=== PATIENT | male | born 1975 | race Caucasian/White ===

== ENCOUNTER 2017-02-11 14:47 | Emergency (ER) | payer BC ==
[2017-02-11 15:04] VITALS: BP 115/80
--- NOTE | 2017-02-11 15:44 | UC ---
Skin Complaint HPI - History of Current Complaint Chief Complaint: UCSkin Time Seen by Provider: 02/11/17 15:34 Stated Complaint: SKIN COMPLAINT ON BACK Hx Obtained From: Patient Onset/Duration: Gradual Onset, Lasting Weeks - 2, Worse Since - onset, increased pain. ? smaller in size. Skin Exposure Onset/Duration: Weeks Ago - 2 Timing: Constant Onset Severity: Mild Current Severity: Moderate Location: Discrete - Right hip / belt line Character: Swelling, Redness, Raised, Painful Aggravating: Clothing, Touch Alleviating: Nothing Associated Signs & Symptoms: Positive: Nausea, Tenderness. Negative: Vomiting, Diaphoresis, Fever, Drainage - Allergy/Home Medications Allergies/Adverse Reactions: Allergies Allergy/AdvReac Type Severity Reaction Status Date / Time No Known Allergies Allergy Verified 02/11/17 15:04 Home Medications: Home Medications Acetaminophen [Acetaminophen Extra Stren] 1,000 mg PO Q6H PRN 02/11/17 [History Confirmed 02/11/17] Omeprazole CAP* [Prilosec CAP* 20 MG] 20 mg PO BEDTIME 02/11/17 [History Confirmed 02/11/17] Pramipexole TAB* [Mirapex TAB*] 0.125 mg PO BEDTIME 02/11/17 [History Confirmed 02/11/17] Review of Systems Skin: Rash All Other Systems Reviewed And Are Negative: Yes PMH/Surg Hx/FS Hx/Imm Hx Previously Healthy: Yes - Surgical History Surgical History: None Surgery Procedure, Year, and Place: NASAL FX, 2008, [place] X2. CERVICAL SPINE SURGERY 2014,[facility]. NASAL SX 2017 - Family History Known Family History: Positive: Diabetes - Social History Occupation: Employed Full-time Lives: With Family Alcohol Use: Occasionally Alcohol Amount: 10 BEERS 2X A MONTH Substance Use Type: None Smoking Status (MU): Current Every Day Smoker Type: Cigarettes Amount Used/How Often: 1/2 PACK A DAY Length of Time of Smoking/Using Tobacco: 23 YRS Have You Smoked in the Last Year: Yes - Immunization History Most Recent Influenza Vaccination: UNKNOWN Most Recent Tetanus Shot: 3-5 YEARS Most Recent Pneumonia Vaccination: NONE Physical Exam Triage Information Reviewed: Yes Appearance: Well-Appearing, Well-Nourished, Pain Distress - mild Vital Signs: Initial Vital Signs Temp 97.5 F 02/11/17 14:54 Pulse 75 08/12/17 14:54 Resp 18 02/11/17 14:54 BP 115/80 02/11/17 14:54 Pulse Ox 98 02/11/17 14:54 Vital Signs Reviewed: Yes Eyes: Positive: Conjunctiva Clear Neck exam: Normal Respiratory Exam: Normal Cardiovascular Exam: Normal Musculoskeletal Exam: Normal Musculoskeletal: Positive: No Edema Neurological Exam: Normal Psychological Exam: Normal Skin: Positive: Other - 3x3cm abscess with fluctuent center in the right lower back. Very tender, red, and warm. - Additional Comments I+D: right lower back. Consent/ Time out done. Local 4cc 0.25% marcaine. Incision with 11 blade. Abscess pus and sebum expressed. Dry gauze bandage. Course/Dx - Differential Diagnoses - Skin Complaint Differential Diagnoses: Abscess, Cellulitis, Lymphadenitis - Diagnoses Provider Diagnoses: Abscess right lower back. S/P I+D Discharge - Discharge Plan Condition: Stable Disposition: HOME Prescriptions: Sulfamethox/Trimethoprim DS* [Bactrim DS 800/160 TAB*] 1 tab PO BID #14 tab Patient Education Materials: Abscess (ED), Incision and Drainage (ED), Sulfamethoxazole/Trimethoprim (By mouth)
[2017-02-11] MEDS ORDERED: Bupivacaine 0.25% SDV* 30 ML INJ ONE (15:49)
== END 2017-02-11 16:26 | disposition home or self-care (01) ==
LOC: UCCORT 14:47
DX: L02.212 Cutaneous abscess of back [any part, except buttock and flank] (principal); R11.0 Nausea; F17.210 Nicotine dependence, cigarettes, uncomplicated
CPT/HCPCS: 10060; 87070; 87205; 99212; G0463

== ENCOUNTER 2019-09-11 13:54 | Emergency (ER) | payer BC, OTHER | END 2019-09-11 14:59 | disposition left against medical advice (07) | LOC: UCCORT 13:54 | DX: Z53.21 Procedure and treatment not carried out due to patient leaving prior to being seen by health care provider (principal) ==

== ENCOUNTER 2019-10-01 12:16 | Emergency (ER) | payer OTHER ==
--- OUTSIDE RECORDS SUMMARY | 2019-10-01 12:24 | XMS REPORT | Continuity of Care Document ---
:1975 External Reference #:[id number] Author Name BEULAH Kelley (transmitted by agent of provider Christin Delgado) Address [address] [place] [address] Care Team Providers Name Role Phone Heri Plummer MD - Care Team Information Neon Sign Maker [phone] Endocrinology, Diabetes & Metabolism Remington Chinchilla MD - Family Care Team Information Neon Sign Maker Medicine Problems Active Problems Provider Date Cervical spondylosis without myelopathy Jordy Mcdonnell M.D. Onset: 07/02/2013 Cervical spondylosis with myelopathy Jordy Mcdonnell M.D. Onset: 09/04/2013 Neck pain Jordy Mcdonnell M.D. Onset: 01/27/2016 Restless legs Onset: 05/18/2011 Adjustment disorder with depressed mood Hamilton Monroe M.D. Onset: 2018 Note: F43.21 Social History Type Date Description Comments Sex Unknown Tobacco Use Start: Unknown Patient is a current cigarette smoker, smokes every day Tobacco Use Start: Unknown currently smokes 1/2 Pack Daily ETOH Use Occasionally consumes alcohol Recreational Drug Use Denies Drug Use Tobacco Use Reviewed: 12/17/15 Patient is a current smoker, smokes 1/4 ppd every day Smoking Status Reviewed: 03/07/19 Patient is a current smoker, smokes 1/4 ppd every day Allergies, Adverse Reactions, Alerts Description No Known Drug Allergies Medications Active Medications SIG Qnty Indications Ordering Provider Date Mirapex take 2 tablets 60tabs G25.81 Remington 07/04/2016 0.125mg Tablets 2-3 hours before MD Amor sleep Omeprazole 1 by mouth every 30caps Remington 20mg day as needed MD Amor Capsules DR Immunizations CPT Code Status Date Vaccine Lot # [id number] Given 08/25/2010 Tdap - Tetanus/Diptheria/Acellular Pertussis [id number] Given 08/25/2010 Influenza Virus 3Yrs & Over Vital Signs Date Vital Result Comment 09/11/2019 3:47pm Heart Rate 80 /min BP Systolic Sitting 118 mmHg BP Diastolic Sitting 80 mmHg Respiratory Rate 16 /min Body Temperature 98.3 F O2 % BldC Oximetry 98 % 80room air 03/06/2019 11:23am Weight 210.00 lb BP Systolic 134 mmHg BP Diastolic 94 mmHg Results Description No Information Available Procedures Description No Information Available Medical Devices Description No Information Available Encounters Type Date Location Provider Dx Diagnosis Office Visit 09/11/2019 [facility] BEULAH Kelley B34.9 Viral infection, 3:41p Walk-in at [facility] unspecified Drugs Assessments Date Code Description Provider 09/11/2019 B34.9 Influenza-like illness BEULAH Kelley Plan of Treatment Future Appointment(s):10/10/2019 1:00 pm - BEULAH Zarate at [facility]05/2020 - Nuvia Mccann PAB34.9 Influenza-like illnessComments:FOLLOW UP WITH PRIMARY CARE IN 7-10 DAYS OR SOONER IF WORSE. Functional Status Description No Information Available Mental Status Description No Information Available Referrals Description No Information Available
[2019-10-01 13:35] VITALS: BP 141/92
--- NOTE | 2019-10-02 11:29 | UC ---
FLU HPI - HPI Summary HPI Summary: Due to concern for my evaluation patient was through the conferencing Pt presents to urgent care with flulike symptoms. Patient is a 44-year-old male who states approximately 3 weeks ago he was influenza at the [facility] clinic. Patient states after 4 days he started feeling better. Patient returned. Patient states 4 days ago she started to feel ill again. Patient states his Body aches. Patient has sore throat. Patient has a cough is nonproductive. Patient states he feels very fatigued. Tactile temperatures. Patient's been taking Tylenol seems to help. Patient states today he feels better but still very tired with some body aches. No nausea vomiting. Decreased appetite. No ear pain. Patient lives alone but has contact with his girlfriend and her 2 children. 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 Patient without any known contacts COVID. No travel. Patient is not immunocompromised. Patient's medications is under an EMR Nisha was reviewed this visit. - History of Current Complaint Chief Complaint: UCGeneralIllness Stated Complaint: COUGH,CONGESTION,FATIGUE Time Seen by Provider: 10/01/19 12:46 Hx Obtained From: Patient Pain Intensity: 0 Pain Scale Used: 0-10 Numeric - Allergy/Home Medications Allergies/Adverse Reactions: Allergies Allergy/AdvReac Type Severity Reaction Status Date / Time No Known Allergies Allergy Verified 10/01/19 12:27 Home Medications: Home Medications Omeprazole CAP (NF) [Prilosec CAP* 20 MG] 20 mg PO BEDTIME 02/11/17 [History Confirmed 10/01/19] Pramipexole TAB* [Mirapex TAB*] 0.125 mg PO BEDTIME 02/11/17 [History Confirmed 10/01/19] PMH/Surg Hx/FS Hx/Imm Hx Previously Healthy: Yes - Surgical History Surgical History: None Surgery Procedure, Year, and Place: NASAL FX, 2008, [place] X2. [place] [place]AL [place]X 2017 - Family History Known Family History: Positive: Diabetes - Social History Occupation: Employed Full-time Lives: Alone Alcohol Use: Occasionally Alcohol Amount: 10 BEERS 2X A MONTH Substance Use Type: None Smoking Status (MU): Current Every Day Smoker Type: Cigarettes Amount Used/How Often: 1/2 PACK A DAY Length of Time of Smoking/Using Tobacco: 23 YRS Have You Smoked in the Last Year: Yes - Immunization History Most Recent Influenza Vaccination: UNKNOWN Most Recent Tetanus Shot: 3-5 YEARS Most Recent Pneumonia Vaccination: NONE Review of Systems All Other Systems Reviewed And Are Negative: Yes Constitutional: Positive: Fever - tactile, Fatigue Skin: Positive: Negative Eyes: Positive: Negative ENT: Positive: Negative Respiratory: Positive: Cough - non productive. Negative: Shortness Of Breath Cardiovascular: Negative: Chest Pain Gastrointestinal: Positive: Negative Genitourinary: Positive: Negative Motor: Positive: Negative Neurovascular: Positive: Negative Musculoskeletal: Positive: Negative Physical Exam - Summary Physical Exam Summary: Due to concern for pulmonary physical exam was done by the video conference. Limitations related to this discussed - pt well appearing Patient comfort and in agreement Vital Signs Reviewed: Yes A+Ox3, intermittent cough - speaking full easy sentences, appropriate in no distress Eyes: Conjunctiva Clear ENT: Hearing grossly normal, mmmoist neck: supple Respiratory: Positive: No respiratory distress, No accessory muscle use, mild cough, no audible wheeze Cardiovascular: skin color reflect adequate perfusion Musculoskeletal Exam: NEWBY x 4 without difficulty, ambulatory Neurological: Positive: Alert, ambulatory without difficulty Psychological: Positive: Normal Response To proivder Skin: Positive: no rash, no ecchymosis Triage Information Reviewed: Yes Vital Signs: Initial Vital Signs Temp 98.1 F 10/01/19 13:34 Pulse 88 10/01/19 13:34 Resp 20 10/01/19 13:34 BP 141/92 10/01/19 13:34 Pulse Ox 95 10/01/19 13:34 Flu Course/Dx - Course Course Of Treatment: Patient presents to urgent care with early syndromes. Patient states he was sick with influenza presents 3 weeks ago. Patient states he Better Studies patient's current ill again. Patient was tactile temperatures, nonproductive cough, feeling very fatigued. Patient states he is today he's feeling better he was yesterday when he is not at baseline. Vital signs are stable. Patient exam somewhat limited in a video consult. Patient will be speaking full sentences. Patient does have a intermittent slight cough. After discussion, we'll check patient for code. Patient aware that he does need full isolation he lives alone. Will give no further workup. Patient significant other and children not knee because of this time unless he develops symptoms. I did discuss with patient testing options for them. Patient is understanding of plan. Patient aware that if his symptoms worsen or anything changes he should immediately go to the emergency department - Differential Dx/Diagnosis Provider Diagnosis: Suspected COVID-19 virus infection Discharge ED - Sign-Out/Discharge Documenting (check all that apply): Patient Departure All imaging exams completed and their final reports reviewed: No Studies - Discharge Plan Condition: Stable Disposition: HOME Forms: COVID-19 Tested & Isolation Referrals: Remington Chinchilla MD [Primary Care Provider] - Additional Instructions: If you develop shortness of breath, uncontrolled fever, vomiting or any other concerns it is recommended you go to the emergency department for further testing and evaluation STay well hydrated - drink plenty of non-alcoholic, non-caffinated beverages If your loved ones develop any symptoms- they should be evaluated - they can come here or go to the [facility] in [place] Go to [facility] website ([email or web address]) for additional information and to register for this clinic You will receive a call with your result in 48-72 hours - Billing Disposition and Condition Condition: STABLE Disposition: Home
== END 2019-10-01 13:33 | disposition home or self-care (01) ==
LOC: UCCORT 12:16
DX: M79.10 Myalgia, unspecified site (principal); J02.9 Acute pharyngitis, unspecified; R05 Cough; R53.83 Other fatigue; R50.9 Fever, unspecified; Z20.828 Contact with and (suspected) exposure to other viral communicable diseases; F17.210 Nicotine dependence, cigarettes, uncomplicated
CPT/HCPCS: 87635; 99211; G0463

== ENCOUNTER 2019-10-17 18:57 | Emergency (ER) | payer OTHER ==
--- NOTE | 2019-10-17 19:04 | UC ---
FLU HPI - HPI Summary HPI Summary: 44yo male presenting with dry cough, sore throat, and fatigue "for the last few weeks" but worse for the last 3 days. Notes sob at times with coughing. Denies chest pain and difficulty breathing. Denies wheezing. Notes mild nasal congestion. Notes decreased appetite. Normal fluid intake. Denies n/v/d. Patient states "fatigue is the most bothersome. I could sleep for 10 hours and I feel like I slept for 10 minutes." Also notes subjective fevers. Denies ill contacts but states he works in close proximity to others at work. States he was evaluated for similar symptoms and tested for covid on 09/30. States the covid test was negative. Patient requesting repeat testing for covid and flu today. PMHx significant for GERD and restless leg syndrome. - History of Current Complaint Stated Complaint: FEVER,COUGH,ST Hx Obtained From: Patient - Allergy/Home Medications Allergies/Adverse Reactions: Allergies Allergy/AdvReac Type Severity Reaction Status Date / Time No Known Allergies Allergy Verified 10/17/19 19:03 Home Medications: Home Medications Omeprazole CAP (NF) [Prilosec CAP* 20 MG] 20 mg PO QAM 02/11/17 [History Confirmed 10/17/19] Pramipexole TAB* [Mirapex TAB*] 0.125 mg PO BEDTIME 02/11/17 [History Confirmed 10/17/19] PMH/Surg Hx/FS Hx/Imm Hx GI/ History: Gastroesophageal Reflux - Surgical History Surgical History: None Surgery Procedure, Year, and Place: NASAL FX, 2008, [facility] X2. [place] [place] 2016 - Family History Known Family History: Positive: Diabetes - Social History Alcohol Use: Occasionally Alcohol Amount: 10 BEERS 2X A MONTH Substance Use Type: None Smoking Status (MU): Current Every Day Smoker Type: Cigarettes Amount Used/How Often: 1/2 PACK A DAY Length of Time of Smoking/Using Tobacco: 23 YRS Have You Smoked in the Last Year: Yes - Immunization History Most Recent Influenza Vaccination: UNKNOWN Most Recent Tetanus Shot: 3-5 YEARS Most Recent Pneumonia Vaccination: NONE Review of Systems All Other Systems Reviewed And Are Negative: Yes Constitutional: Positive: Fever - subjective, Fatigue ENT: Positive: Sore Throat, Sinus Congestion Respiratory: Positive: Shortness Of Breath - with coughing, Cough - dry Cardiovascular: Positive: Negative. Negative: Chest Pain Gastrointestinal: Positive: Negative Genitourinary: Positive: Negative Musculoskeletal: Positive: Negative Neurological/Mental Status: Positive: Negative Physical Exam - Summary Physical Exam Summary: Vital Signs Reviewed: Yes A+Ox3, no distress Eyes: Conjunctiva Clear ENT: Hearing grossly normal, TM x 2 clear, moist, uvula midline, no exudate, + pharyngeal erythema Neck: Positive: Supple, no LAD Respiratory: Positive: No respiratory distress, No accessory muscle use + CTA throughout no w/r Cardiovascular: RRR nl s1, s2 no m/r Musculoskeletal Exam: NEWBY x 4 without difficulty Neurological: Positive: Alert Psychological: Positive: age appropriate behavior Skin: Positive: no rash, no ecchymosis Vital Signs: Vital Signs (72 hours) 10/17/19 19:01 Temperature 97.2 F Pulse Rate 79 Respiratory 15 Rate Blood Pressure 141/81 (mmHg) O2 Sat by Pulse 98 Oximetry Lab Results 10/17/19 10/17/19 Range/Units 19:34 19:37 Influenza A (Rapid) Negative (Negative) Influenza B (Rapid) Negative (Negative) Group A Strep Rapid Negative (Negative) Flu Course/Dx - Course Course Of Treatment: Flu and strep tests were negative. I discussed results with the patient and informed him that he would receive the covid19 results from the health department within the next 3-5 days. I discussed self quarantining until results have been received. The patient declined treatment with an inhaler for any sob. Instructed to go to the ED if he experiences worsening shortness of breath/difficulty breathing. Patient voiced understanding and agreed with treatment plan. All questions answered to the best of my abilities. - Differential Dx/Diagnosis Differential Diagnosis/HQI/PQRI: Bronchitis, Influenza, Upper Respiratory Infection Provider Diagnosis: Flu-like symptoms Discharge ED - Sign-Out/Discharge Documenting (check all that apply): Patient Departure All imaging exams completed and their final reports reviewed: No Studies - Discharge Plan Condition: Stable Disposition: HOME Patient Education Materials: Viral Syndrome (ED) Forms: COVID-19 Tested & Isolation Referrals: Remington Chinchilla MD [Primary Care Provider] - Additional Instructions: As discussed, your strep and flu tests were negative today. You also received testing for covid-19 today. You will be notified of the results within 3-5 days. You need to self-isolate for the next 14 days unless otherwise advised by a healthcare provider. This means staying home and no contact with anyone who lives with you. You may take tylenol as directed for fever and pain relief. Increase your fluid intake. Go to the nearest emergency room or call 911 if you experience new or worsening symptoms. - Billing Disposition and Condition Condition: STABLE Disposition: Home
[2019-10-17 19:33] VITALS: BP 141/81
[2019-10-17 19:48] LABS: Influenza A Molecular Negative (Negative); Influenza B Molecular Negative (Negative)
== END 2019-10-17 19:58 | disposition home or self-care (01) ==
LOC: UCCORT 18:57
DX: R05 Cough (principal); R06.02 Shortness of breath; J02.9 Acute pharyngitis, unspecified; R53.83 Other fatigue; Z20.828 Contact with and (suspected) exposure to other viral communicable diseases; K21.9 Gastro-esophageal reflux disease without esophagitis; G25.81 Restless legs syndrome; Z79.899 Other long term (current) drug therapy; F17.210 Nicotine dependence, cigarettes, uncomplicated
CPT/HCPCS: 87635; 87651; 99211; G0463

== ENCOUNTER 2023-09-05 06:28 | Observation (INO) ==
[2023-09-05] MEDS ORDERED: ceFAZolin 2 GM in NS PREMIX 2 GM/100 ML BAG IVPB ONE (07:04)
[2023-09-05 07:16] LABS: Rapid COVID-19 Molecular Undetected (Undetected)
[2023-09-05] MEDS ORDERED: Rocuronium 50 mg VIAL 10 mg/ml 5 ml VIAL (50 mg) ONE (07:40)
[2023-09-05] MEDS ORDERED: Lidocaine 2% PF 5 ML VIAL ONE (07:40)
[2023-09-05] MEDS ORDERED: Propofol 10 MG/ML 20 ML BTL ONE ×4 (07:40→10:48)
[2023-09-05] MEDS ORDERED: fentaNYL 100 mcg/2 ml 50 MCG/ML VIAL ONE ×3 (07:41→13:10)
[2023-09-05] MEDS ORDERED: Midazolam 2 mg/2 ml VIAL 1 mg/ml 2 ml VIAL (2 mg) ONE ×3 (07:41→11:21)
[2023-09-05] MEDS ORDERED: Naloxone 0.4 mg VIAL 0.4 mg/ml 1 ml VIAL IV PRN (08:23)
[2023-09-05] MEDS ORDERED: Ondansetron 4 mg VIAL 2 MG/ML 2 ml VIAL IV PRN ×2 (08:23→10:15)
[2023-09-05] MEDS ORDERED: ROPIVACAINE 5 MG/ML 30 ML BTL (0.5%) ONE (09:09)
[2023-09-05] MEDS ORDERED: Tranexamic Acid 1 GM/100ML BAG 2,000 MG/200 ML BAG IV ONE (09:29)
[2023-09-05] MEDS ORDERED: Dexamethasone IV 4 MG/ML VIAL 1 ml VIAL ONE (09:47)
[2023-09-05] MEDS ORDERED: Ondansetron 4 mg VIAL 2 MG/ML 2 ml VIAL ONE (09:47)
[2023-09-05] MEDS ORDERED: Ondansetron ODT 4 mg TAB 4 MG TAB PO PRN (10:15)
[2023-09-05] MEDS ORDERED: Lactulose 30 ml UDC PO PRN (10:15)
[2023-09-05] MEDS ORDERED: Magnesium Hydroxide LIQ 30 ML UDC PO PRN (10:15)
[2023-09-05] MEDS: fentaNYL 100 mcg/2 ml 50 MCG/ML VIAL IV PRN (12:38)
[2023-09-05] MEDS ORDERED: HYDROmorphone 1 MG/1 ML SYRINGE ONE (14:08)
[2023-09-05] MEDS: HYDROmorphone 1 MG/1 ML SYRINGE IV PRN (14:13)
[2023-09-05] MEDS: Lactated Ringers 1000 ml BAG 1,000 ML IV SCH (15:36)
[2023-09-05] MEDS: ceFAZolin 1 GM ADVAN 1 GM in NS 0.9% 50 ML 50 ML IVPB SCH (18:33)
[2023-09-05] MEDS: Magnesium Hydroxide LIQ 30 ML UDC PO SCH (21:46)
[2023-09-06] MEDS: Morphine 2 MG/ML SYRINGE IV PRN (04:59)
[2023-09-06 05:31] LABS: Hemoglobin 12.4 g/dL (13.2-16.3); Mean Platelet Volume 8.8 fL (7.5-11.2); Platelet Count 234 10^3/uL (150-450)
[2023-09-06 06:04] LABS: Calcium 8.7 mg/dL (8.6-10.3); Creatinine, Serum 0.77 mg/dL (0.67-1.17); eGFR CKD-EPI 109.1 (>60)
[2023-09-06] MEDS: Vitamin THERAPEUTIC TAB PO SCH (08:04)
[2023-09-06 10:22] VITALS: BP 128/81
== END 2023-09-06 13:16 | disposition home or self-care (01) ==
LOC: SSU 06:28 → OR 06:28 → EDSTATUS 09:30
PROVIDERS: ADMIT Orthopaedic Surgery Adult Reconstructive Orthopaedic Surgery; ATTEND Orthopaedic Surgery Adult Reconstructive Orthopaedic Surgery

== ENCOUNTER 2023-09-07 11:32 | Observation (INO) ==
[2023-09-07] MEDS: Ondansetron 4 mg VIAL 2 MG/ML 2 ml VIAL IV ONE (11:59)
[2023-09-07] MEDS: NS 0.9% 1000 ml BAG 1,000 ML IV ONE (12:00)
[2023-09-07] MEDS: Morphine 4 MG/ML VIAL (1 ml) IV ONE ×2 (12:00→12:24)
[2023-09-07] MEDS ORDERED: Morphine 4 MG/ML VIAL (1 ml) ONE (12:23)
[2023-09-07] MEDS: Acetaminophen IV 1 GM/100ML 1,000 MG/100 ML BAG IV ONE (13:51)
[2023-09-07] MEDS ORDERED: Ondansetron 4 mg VIAL 2 MG/ML 2 ml VIAL IV PRN (16:19)
[2023-09-07] MEDS ORDERED: Ondansetron ODT 4 mg TAB 4 MG TAB PO PRN (16:19)
[2023-09-07] MEDS ORDERED: Lactulose 30 ml UDC PO PRN (16:19)
[2023-09-07] MEDS ORDERED: Magnesium Hydroxide LIQ 30 ML UDC PO PRN (16:19)
[2023-09-07] MEDS: Morphine 2 MG/ML SYRINGE IV PRN (18:18)
[2023-09-07] MEDS: Magnesium Hydroxide LIQ 30 ML UDC PO SCH (22:06)
[2023-09-08 06:27] LABS: Hematocrit 35.6 % (38-53); Hemoglobin 12.2 g/dL (13.2-16.3); Mean Platelet Volume 8.9 fL (7.5-11.2); Platelet Count 218 10^3/uL (150-450)
[2023-09-08 06:45] LABS: Calcium 8.2 mg/dL (8.6-10.3); Creatinine, Serum 0.63 mg/dL (0.67-1.17); eGFR CKD-EPI 115.9 (>60)
[2023-09-08] MEDS: Vitamin THERAPEUTIC TAB PO SCH (08:30)
[2023-09-08] MEDS: Polyethylene Glycol 3350 17 GM PACKET PO SCH (08:54)
[2023-09-08] MEDS: Morphine ER 15 mg TAB ** extended release PO SCH (18:27)
[2023-09-08] MEDS ORDERED: Enoxaparin 40 MG/0.4 ML SYR SUBCUT SCH (21:00)
[2023-09-09 05:04] LABS: Hematocrit 35.6 % (38-53); Hemoglobin 11.8 g/dL (13.2-16.3); Mean Platelet Volume 8.8 fL (7.5-11.2); Platelet Count 251 10^3/uL (150-450)
[2023-09-09 10:49] VITALS: BP 118/66
== END 2023-09-09 11:01 | disposition home or self-care (01) ==
LOC: EDHOLD 11:32 → ED 11:32 → SSU 19:32
PROVIDERS: ADMIT Orthopaedic Surgery Sports Medicine; ATTEND Orthopaedic Surgery Adult Reconstructive Orthopaedic Surgery